=== PATIENT | female | born 1980 ===

== ENCOUNTER 2016-12-03 20:39 | Emergency (ER) | payer MEDICAID ==
[2016-12-03 20:46] VITALS: BP 135/80; PULSE 83; RESP 16; TEMP 98.2; O2SAT 99
--- NOTE | 2016-12-03 21:48 | ED PDOC ---
HPI: Female Pain Time Seen by Provider: 12/03/16 20:54 Chief Complaint (Nursing): Female Genitourinary Chief Complaint (Provider): Vaginal bleeding History Per: Patient History/Exam Limitations: no limitations Onset/Duration Of Symptoms: Days (x2) Current Symptoms Are (Timing): Still Present Additional Complaint(s): Slime Mclean is a 36 year old female who presents to the emergency department with a complaint of vaginal bleeding associated with pain ongoing for 2 days. Denied any fever, chills, abdominal pain, cramping or dysuria. She stated she began spotting yesterday and reported small blood clots today after sexual intercourse with her . Patient also might be 6 weeks , today is the first visit for evaluation. A1 LMP: 09/30/16 PMD: [facility] Past Medical History Reviewed: Historical Data, Nursing Documentation, Vital Signs Vital Signs: Last Vital Signs Temp 98.2 F 12/03/16 20:43 Pulse 83 12/03/16 20:43 Resp 16 12/03/16 20:43 BP 135/80 12/03/16 20:43 Pulse Ox 99 12/03/16 20:43 - Medical History PMH: No Chronic Diseases - Surgical History Surgical History: Appendectomy - Family History Family History: States: Unknown Family Hx - Allergies Allergies/Adverse Reactions: Allergies Allergy/AdvReac Type Severity Reaction Status Date / Time amoxicillin Allergy RASH Verified 12/03/16 20:46 Review of Systems ROS Statement: Except As Marked, All Systems Reviewed And Found Negative Constitutional: Negative for: Fever, Chills Gastrointestinal: Negative for: Abdominal Pain (or cramping) Genitourinary Female: Positive for: Vaginal Bleeding (associated with pain). Negative for: Dysuria Physical Exam - Reviewed Nursing Documentation Reviewed: Yes Vital Signs Reviewed: Yes - Physical Exam Appears: Positive for: Well, Non-toxic, No Acute Distress Head Exam: Positive for: ATRAUMATIC, NORMAL INSPECTION, NORMOCEPHALIC Skin: Positive for: Normal Color Cardiovascular/Chest: Positive for: Regular Rate, Rhythm Respiratory: Positive for: CNT, Normal Breath Sounds Gastrointestinal/Abdominal: Positive for: Normal Exam, Bowel Sounds, Soft. Negative for: Tenderness, Guarding, Rebound Neurologic/Psych: Positive for: Alert, patient care representative II-XII, Oriented - ECG O2 Sat by Pulse Oximetry: 99 (RA) Pulse Ox Interpretation: Normal Medical Decision Making Medical Decision Making: Initial Impression: Vaginal bleeding Differential Diagnosis: Etopic ; first-trimester Miscarriage; complete miscarriage Initial Plan: * Type and screen * serum * Urine * US transvaginal * * EXAM: US , Transvaginal CLINICAL HISTORY: 36 years old, female; Signs and symptoms; Lmp or gestational age (in weeks): ; Antepartum complications; Other: Spotting; ; Additional info: Vaginal bleeding TECHNIQUE: Real-time transvaginal obstetrical ultrasound of the maternal pelvis and a first trimester with image documentation. Transvaginal imaging was used for better evaluation of the fetus and adnexa. COMPARISON: No relevant prior studies available. FINDINGS: Uterus: There is a well formed gestational sac within the endometrial canal. A pole and yolk sac are seen within the gestational sac. [place] rump length measurement correlates with an estimated gestational age of 9 weeks 2 days. cardiac activity is seen with a heart rate of 170 beats per minute. Adnexa: Bilateral ovarian Doppler flow. 2.2 cm left ovarian cyst. Free fluid: None. IMPRESSION: Single live IUP as above. Thank you for allowing us to participate in the care of your patient. Dictated and Authenticated by: Cleopatra Sher MD 12/03/2016 11:10 PM Eastern Time ([place] & [place]) Scribe Attestation: Documented by Shannan Spaulding, acting as a scribe for Gayla Morrell MD. Provider Scribe Attestation: All medical record entries made by the Scribe were at my direction and personally dictated by me. I have reviewed the chart and agree that the record accurately reflects my personal performance of the history, physical exam, medical decision making, and the department course for this patient. I have also personally directed, reviewed, and agree with the discharge instructions and disposition. Disposition - Clinical Impression Clinical Impression: Threatened in early - Patient ED Disposition Is Patient to be Admitted: No Doctor Will See Patient In The: Office Counseled Patient/Family Regarding: Studies Performed, Diagnosis, Need For Followup - Disposition Referrals: [facility] [place] [facility] [Outside] Disposition: Routine/Home Disposition Time: 01:09 Condition: GOOD Additional Instructions: Follow up with your PCP in 2-3 days. Instructions: Threatened Miscarriage (ED)
--- NOTE | 2016-12-03 23:10 | US ---
EXAM: US , Transvaginal CLINICAL HISTORY: 36 years old, female; Signs and symptoms; Lmp or gestational age (in weeks): 10/14/16; Antepartum complications; Other: Spotting; ; Additional info: Vaginal bleeding TECHNIQUE: Real-time transvaginal obstetrical ultrasound of the maternal pelvis and a first trimester with image documentation. Transvaginal imaging was used for better evaluation of the fetus and adnexa. COMPARISON: No relevant prior studies available. FINDINGS: Uterus: There is a well formed gestational sac within the endometrial canal. A pole and yolk sac are seen within the gestational sac. [place] rump length measurement correlates with an estimated gestational age of 9 weeks 2 days. cardiac activity is seen with a heart rate of 170 beats per minute. Adnexa: Bilateral ovarian Doppler flow. 2.2 cm left ovarian cyst. Free fluid: None. IMPRESSION: Single live IUP as above.
== END 2016-12-04 01:16 | disposition home or self-care (01) ==
LOC: H.ER 20:39
DX: O20.0 Threatened abortion (principal); Z3A.01 Less than 8 weeks gestation of pregnancy

== ENCOUNTER 2017-09-25 13:31 | Emergency (ER) | payer MEDICAID ==
[2017-09-25 13:47] VITALS: BP 120/76; PULSE 66; RESP 20; TEMP 97.9; O2SAT 99; BMI 29.5
--- NOTE | 2017-09-25 13:56 | ED PDOC ---
HPI: Eye Injury/Pain Time Seen by Provider: 09/25/17 13:54 Chief Complaint (Nursing): Eye Problem Chief Complaint (Provider): left eye pain History Per: Patient Additional Complaint(s): 37-year-old female presents with pain and tearing to right eye status post sustaining a scratch. Patient states her baby scratched her eye with his nail at 6 AM and patient states pain is progressively worsening. She has mild blurry vision with no purulent discharge. Left eye unaffected. PMD: [place] Past Medical History Reviewed: Historical Data, Nursing Documentation, Vital Signs Vital Signs: Last Vital Signs Temp 97.9 F 09/25/17 13:47 Pulse 66 09/25/17 13:47 Resp 20 09/25/17 13:47 BP 120/76 09/25/17 13:47 Pulse Ox 99 09/25/17 13:47 - Medical History PMH: No Chronic Diseases - Surgical History Surgical History: Appendectomy - Family History Family History: States: No Known Family Hx - Living Arrangements Living Arrangements: With Family - Social History Current smoker - smoking cessation education provided: Yes ("sometimes") Alcohol: None Drugs: Denies - Immunization History Hx Tetanus Toxoid Vaccination: Yes - Home Medications Home Medications: Ambulatory Orders Medication Instructions Recorded Erythromycin 0.5% [Ilytocin] 3.5 gm TOP QID #1 tube 09/25/17 Ketorolac Tromethamine/Pf [Acuvail 1 each OP BID #1 bottle 09/25/17 0.45% Ophth Solution] - Allergies Allergies/Adverse Reactions: Allergies Allergy/AdvReac Type Severity Reaction Status Date / Time amoxicillin Allergy RASH Verified 09/25/17 13:44 Review of Systems ROS Statement: Except As Marked, All Systems Reviewed And Found Negative Eyes: Positive for: Other (right eye pain, injury) Physical Exam - Reviewed Nursing Documentation Reviewed: Yes Vital Signs Reviewed: Yes - Physical Exam Appears: Positive for: Well, Non-toxic, No Acute Distress Skin: Negative for: Rash Eye Exam: Positive for: Other (Moderate tearing noted from right eye, mild upper and lower lid edema with no periorbital cellulitis noted, no gross foreign body, left eye unremarkable) ENT: Positive for: Normal ENT Inspection Cardiovascular/Chest: Positive for: Regular Rate, Rhythm Respiratory: Positive for: Normal Breath Sounds Neurologic/Psych: Positive for: Alert, Oriented - Laboratory Results Urine POC: Negative (test was declined, patient is certain she is not ) - ECG O2 Sat by Pulse Oximetry: 99 Pulse Ox Interpretation: Normal Medical Decision Making Medical Decision Makin year with right eye pain Procedure: 2 drops flucaine applied to right eye, examination with UV demonstrate corneal abrasion centrally. Patient tolerated this procedure well. Prescriptions given for ketorolac ophthalmic and erythromycin ophthalmic ointment. Patient was referred to vehicle care specialist for follow-up. Disposition - Clinical Impression Clinical Impression: Corneal abrasion - Patient ED Disposition Is Patient to be Admitted: No Counseled Patient/Family Regarding: Diagnosis, Need For Followup, Rx Given - Disposition Referrals: Gerardo Corrales MD [Staff Provider] - Disposition Time: 14:22 Condition: STABLE Additional Instructions: Take prescription meds as directed. [id number] Tylenol and Advil for pain as needed. Follow-up with eye doctor in 2-3 days Prescriptions: Erythromycin 0.5% [Ilytocin] 3.5 gm TOP QID #1 tube Ketorolac Tromethamine/Pf [Acuvail 0.45% Ophth Solution] 1 each OP BID #1 bottle Instructions: Corneal Abrasion (DC) Forms: [facility] ([place]ian)
[2017-09-25] MEDS ORDERED: PROPARACAINE/FLUORESCEIN SOD 100 DROP/5 ML BOTTLE OU STA (13:57)
[2017-09-25] MEDS ORDERED: PROPARACAINE/FLUORESCEIN SOD 100 DROP/5 ML BOTTLE ONE (14:09)
== END 2017-09-25 14:33 | disposition home or self-care (01) ==
LOC: H.ER 13:31
DX: S05.02XA Injury of conjunctiva and corneal abrasion without foreign body, left eye, initial encounter (principal); Y92.89 Other specified places as the place of occurrence of the external cause